=== PATIENT | female | born 1940 | race Caucasian/White ===

== ENCOUNTER 2023-04-11 14:17 | Outpatient (AMB) | payer MEDICARE, BC, SELFPAY ==
[2023-04-11 14:42] VITALS: BP 145/66; PULSE 82; RESP 18; O2SAT 96
--- NOTE | 2023-04-11 14:42 | MHC.OFFVIS ---
Intake Vital Signs 04/11/23 14:42 Weight 204 lb 6 oz BP 145/66 H Blood Pressure Location Lt brachial Position Sitting Respiration 18 Pulse 82 Pulse Source Pulse Oximeter Pulse Oximetry (%) 96 Oxygen Delivery Method Room Air Intake Visit Reasons: Chronic Lower Back Pain r/t Lumbar Spondylosis/lvm HPI HPI Comments History of Present Illness Details Basia is a very pleasant 82 year old female who presents to the office today, accompanied by her , for evaluation and management of her right lower back pain. Patient reports she has been suffering with this pain for approx 4 months. She has a history of surgery to the lower back 2 years ago to treat left sided pain, she did not have right sided pain at that time. She was cleared by neurosurgery approx 6 months ago. Patient report pain right upper buttocks that radiates into the thigh and to the right groin. Pain is worse with sitting, standing and when rising from seated position. She states laying on the right side at night is painful. Pain does not radiate past the level of the knee. She has tried gabapentin with no relief. PCP prescribed her baclofen recently but she has not tried yet as she is afraid it will make her too drowsy. Per patients she is fairly sedentary at home, getting up several times a day to go to the bathroom but otherwise she does very little physical activity. She underwent MRI appro 5 months ago, results are not available at this time. She had injections to the back years ago, initially they were beneficial but the last time she did not find any relief. Patient denies red flag symptoms including new loss of bowel, bladder or saddle anesthesia. In terms of muscle damage condition is described as aching. Pain is negatively impacting patients enjoyment of life, normal work, sleep and walking. Patient is on eliquis for DVT. 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 Essential (primary) hypertension Radiculopathy due to lumbar intervertebral disc disorder Paroxysmal atrial fibrillation Idiopathic osteoarthritis Chronic interstitial cystitis Intermittent asthma, well controlled Lumbar spondylolysis Osteoporosis Deep vein thrombosis of left lower extremity Osteoarthritis of right knee Lumbar radiculopathy Review of Systems Const All systems reviewed & are unremarkable except as noted in HPI and below Physical Exam Vital Signs: Last Vital Signs Pulse 82 04/11/23 14:42 Resp 18 04/11/23 14:42 BP 145/66 H 04/11/23 14:42 Pulse Ox 96 04/11/23 14:42 Oxygen Delivery Method Room Air 04/11/23 14:42 Lumbar exam: Able to stand on bilateral tiptoes and bilateral heels. Able to transition from sit to stand unassisted. Ambulates with antalgic gait with cane Visual inspection without gross abnormality Tender to palpation over right PSIS ROM: limited secondary to pain with extension to 10 degrees. flexion to 45degrees Strength: 5/5 BLE Sensation: intact and symmetric BLE DTR: intact and symmetric Straight leg raises with and without dorsiflexion negative bilaterally VIANCA positive on right Thigh thrust positive on right Gaenslen positive on right SI compression positive on right Assessment & Plan Assessment & Plan (1) Sacroiliac joint dysfunction of right side: Code(s): M53.3 - Sacrococcygeal disorders, not elsewhere classified (2) Facet arthritis of lumbar region: Code(s): M47.816 - Spondylosis without myelopathy or radiculopathy, lumbar region (3) Post laminectomy syndrome: Code(s): M96.1 - Postlaminectomy syndrome, not elsewhere classified Plan Basia is a very pleasant 82 year old female who presents to the office today for evaluation and management of her right lower back pain. History, physical exam and provocative testing consistent with right SIJ dysfunction. Patient was not able to tolerate PT, it was too painful. She has tried OTC medications and prescription medications without relief. Zynex TENS unit sent, patient given pamphlet and instructions for use Advised to try Baclofen as prescribed by pcp, she may take twice daily as needed. Call the office for refill as needed. Discussed options for treatment including diagnostic interventional testing, epidural steroid injections, peripheral nerve stimulation with Sprint, RFA and more permanent neuromodulation. Will schedule for Fluoroscopy guided diagnostic right SIJ injection with local anesthetic. Patient advised we will need cardiology clearance to hold Eliquis for all interventional procedures. All questions and concerns have been answered and patient agrees with the plan. Follow up after injections and sooner if needed. Coding Level of Care Code New Pt Level 4 (26538) Diagnoses Sacroiliac joint dysfunction of right side M53.3 Facet arthritis of lumbar region M47.816 Post laminectomy syndrome M96.1
== END 2023-04-11 15:21 | disposition home or self-care (01) ==
PROVIDERS: PCP Internal Medicine; Referring Provider Internal Medicine; Visit Provider Registered Nurse Emergency
DX: M53.3 Sacrococcygeal disorders, not elsewhere classified (principal); M47.816 Spondylosis without myelopathy or radiculopathy, lumbar region; M96.1 Postlaminectomy syndrome, not elsewhere classified
CPT/HCPCS: 99204

== ENCOUNTER → 2023-04-11 14:17 | Outpatient (BNVA) | payer MEDICARE, BC, SELFPAY | PROVIDERS: PCP Internal Medicine; Referring Provider Internal Medicine; Visit Provider Registered Nurse Emergency | DX: M47.816 Spondylosis without myelopathy or radiculopathy, lumbar region (principal); M53.3 Sacrococcygeal disorders, not elsewhere classified; M96.1 Postlaminectomy syndrome, not elsewhere classified | CPT/HCPCS: 99202 ==

== ENCOUNTER 2023-06-20 06:14 | Outpatient (REF) | payer MEDICARE, BC, SELFPAY ==
--- NOTE | ~2023-06-20 | FL_ITS ---
EXAMINATION: XR FLUOROSCOPY WITH IMAGES CLINICAL INFORMATION: Sacrococcygeal disorders, not otherwise classified. COMPARISON: Lumbar spine radiographs dated 03/04/2021. TECHNIQUE: Fluoroscopy Supervised By: Dr. Evelyn Mesa. Fluoroscopy Time: 0.1 minutes. Cumulative Dose: 2.04 mGy. DAP: 0.0261 mGym2. Images: 1. FINDINGS: The submitted images show an injection needle and injecting contrast distributed in the vicinity of the right sacroiliac joint. FL/FL guidance in treatment room IMPRESSION: Intraoperative fluoroscopic guidance is provided during pain management procedure. Please see the patient's Operative Report for full procedural details.
== END 2023-06-20 06:15 | disposition home or self-care (01) ==
LOC: CF 06:14
PROVIDERS: Visit Provider Anesthesiology
DX: M53.3 Sacrococcygeal disorders, not elsewhere classified (principal); M47.816 Spondylosis without myelopathy or radiculopathy, lumbar region; M96.1 Postlaminectomy syndrome, not elsewhere classified
CPT/HCPCS: 27096; J2795; Q9967

== ENCOUNTER 2023-06-20 09:59 | Outpatient (AMB) | payer MEDICARE, BC, SELFPAY ==
--- NOTE | 2023-06-20 10:09 | A.OFFVIS_ITS ---
Intake Vital Signs 06/20/23 10:10 06/20/23 10:10 Height 5 ft 3 in 5 ft 3 in Weight 204 lb 6 oz 204 lb 6 oz BMI 36.2 36.2 BP 112/66 128/60 Blood Pressure Location Lt brachial Lt brachial Position Sitting Sitting Respiration 14 14 Pulse 72 72 Pulse Source Pulse Oximeter Pulse Oximeter Pulse Oximetry (%) 94 97 Oxygen Delivery Method Room Air Room Air Comment pre-op post-op Intake Visit Reasons: RIGHT DIAGNOSTIC SIJ INJECTION Allergies No Known Allergies Allergy (Verified 06/20/23 10:09) [facility] Medical History (Updated 04/11/23 @ 15:54 by Evelyn Mesa, BREAKFAST HOSTESS, RECORD CENTER SPECIALIST) Interstitial cystitis (chronic) with hematuria Hypothyroidism Intervertebral disc disorders with radiculopathy, 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 Essential (primary) hypertension Radiculopathy due to lumbar intervertebral disc disorder Paroxysmal atrial fibrillation Idiopathic osteoarthritis Chronic interstitial cystitis Intermittent asthma, well controlled Lumbar spondylolysis Osteoporosis Deep vein thrombosis of left lower extremity Osteoarthritis of right knee Lumbar radiculopathy Physical Exam Vital Signs: Last Vital Signs Pulse 72 06/20/23 10:10 Resp 14 06/20/23 10:10 BP 128/60 06/20/23 10:10 Pulse Ox 97 06/20/23 10:10 Oxygen Delivery Method Room Air 06/20/23 10:10 BMI result Body Mass Index 36.2 Assessment & Plan Assessment & Plan (1) Sacroiliac joint dysfunction of right side: Code(s): M53.3 - Sacrococcygeal disorders, not elsewhere classified Plan: Right diagnostic sacroiliac joint injection Informed consent was explained thoroughly to the patient.? All questions about benefits and risks for the procedure were answered. Patient came to the operating room and was positioned prone on the operating table with the pillow under her abdomen. Time out was performed delineating name and of the patient, site and side of the procedure, nature of the procedure and potential patient?s risks. The lower back of the patient and upper buttocks was prepped with ChloraPrep prepped and draped with sterile utility drapes.? C-arm was brought over the operating field and square picture of patient's pelvis was demonstrated on the screen.? For the right-oint tilting C-arm contralateral to the site of the joint the posterior joint silhouette was delineated on the screen. Skin projection of the joint was chosen as a target of the injection and it was injected ?slightly medial to the location of the joint with 25 gauge needle using local lidocaine 2% without epinephrine. After that 22 gauge 3 and 1/2 inch needle was driven to the joint silhouette in tunnel vision fashion.? When needle entered the joint capsule injection of the contrast was performed demonstrating intra-articular spread of the contrast.? After that 5 cc. of ropivacaine 0.5% was injected into the joint. Upon completion of the injections the needle was removed and sterile dressing was applied.? Upon completion of the injection patient was awaken taken outside of the operating room to the recovery room where recovered uneventfully.? (2) Facet arthritis of lumbar region: Code(s): M47.816 - Spondylosis without myelopathy or radiculopathy, lumbar region (3) Post laminectomy syndrome: Code(s): M96.1 - Postlaminectomy syndrome, not elsewhere classified Plan Basia is a very pleasant 82 year old female who presents to the office today for evaluation and management of her right lower back pain. History, physical exam and provocative testing consistent with right SIJ dysfunction. Patient was not able to tolerate PT, it was too painful. She has tried OTC medications and prescription medications without relief. Zynex TENS unit sent, patient given pamphlet and instructions for use Advised to try Baclofen as prescribed by pcp, she may take twice daily as needed. Call the office for refill as needed. Discussed options for treatment including diagnostic interventional testing, epidural steroid injections, peripheral nerve stimulation with Sprint, RFA and more permanent neuromodulation. Will schedule for Fluoroscopy guided diagnostic right SIJ injection with local anesthetic. Patient advised we will need cardiology clearance to hold Eliquis for all interventional procedures. All questions and concerns have been answered and patient agrees with the plan. Follow up after injections and sooner if needed. Coding Level of Care Code Procedure Only Diagnoses Sacroiliac joint dysfunction of right side M53.3 Facet arthritis of lumbar region M47.816 Post laminectomy syndrome M96.1
[2023-06-20 10:10] VITALS: BP 112/66; BP 128/60; PULSE 72; RESP 14; O2SAT 94; O2SAT 97; BMI 36.2
== END 2023-06-20 10:35 | disposition home or self-care (01) ==
LOC: HO.PMCPRC 09:59
PROVIDERS: PCP Internal Medicine; Visit Provider Anesthesiology
DX: M53.3 Sacrococcygeal disorders, not elsewhere classified (principal)
CPT/HCPCS: 27096

== ENCOUNTER 2023-06-28 09:58 | Outpatient (AMB) | payer MEDICARE, BC, SELFPAY ==
[2023-06-28 10:06] VITALS: BP 153/67; PULSE 86; RESP 16; O2SAT 96; BMI 36.0
--- NOTE | 2023-06-28 10:06 | A.OFFVIS_ITS ---
Intake Vital Signs 06/28/23 10:06 Height 5 ft 3 in Weight 203 lb 8 oz BMI 36.0 BP 153/67 H Blood Pressure Location Lt brachial Position Sitting Respiration 16 Pulse 86 Pulse Source Pulse Oximeter Pulse Oximetry (%) 96 Oxygen Delivery Method Room Air Intake Visit Reasons: RIGHT DIAGNOSTIC SIJ INJECTION/06/20/23 Allergies No Known Allergies Allergy (Verified 06/28/23 10:06) HPI HPI Comments History of Present Illness Details Patient presents to the office today, accompanied by her , for follow-up one-week status post right diagnostic sacroiliac joint injection. She reports pain 0/10 for the 6 hours after the injection. Despite remaining pain free during that time she states after the medication wore off the pain returned and it seemed to be worse. She is unsure if she would like to proceed with therapeutic injection. Her reports that she has been more active in the day since the procedure and patient reports today her pain is improved rated as 3/10. reports the family is concerned that the patient is not as active as the would like her to be. She spends a lot of time sitting in a recliner chair and the a trying to encourage her to be more active and at least get up and walk more throughout the day. They would like a referral to physical therapy to try to increase patient's mobility and endurance. Prior: Basia is a very pleasant 82 year old female who presents to the office today, accompanied by her , for evaluation and management of her right lower back pain. Patient reports she has been suffering with this pain for approx 4 months. She has a history of surgery to the lower back 2 years ago to treat left sided pain, she did not have right sided pain at that time. She was cleared by neurosurgery approx 6 months ago. Patient report pain right upper buttocks that radiates into the thigh and to the right groin. Pain is worse with sitting, standing and when rising from seated position. She states laying on the right side at night is painful. Pain does not radiate past the level of the knee. She has tried gabapentin with no relief. PCP prescribed her baclofen recently but she has not tried yet as she is afraid it will make her too drowsy. Per patients she is fairly sedentary at home, getting up several times a day to go to the bathroom but otherwise she does very little physical activity. She underwent MRI appro 5 months ago, results are not available at this time. She had injections to the back years ago, initially they were beneficial but the last time she did not find any relief. Patient denies red flag symptoms including new loss of bowel, bladder or saddle anesthesia. In terms of muscle damage condition is described as aching. Pain is negatively impacting patients enjoyment of life, normal work, sleep and walking. Patient is on eliquis for DVT. 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 Essential (primary) hypertension Radiculopathy due to lumbar intervertebral disc disorder Paroxysmal atrial fibrillation Idiopathic osteoarthritis Chronic interstitial cystitis Intermittent asthma, well controlled Lumbar spondylolysis Osteoporosis Deep vein thrombosis of left lower extremity Osteoarthritis of right knee Lumbar radiculopathy Review of Systems Const All systems reviewed & are unremarkable except as noted in HPI and below Physical Exam Vital Signs: Last Vital Signs Pulse 86 06/28/23 10:06 Resp 16 06/28/23 10:06 BP 153/67 H 06/28/23 10:06 Pulse Ox 96 06/28/23 10:06 Oxygen Delivery Method Room Air 06/28/23 10:06 BMI result Body Mass Index 36.0 General: awake, alert, oriented. Answers questions appropriately. Fully engaged in examination. Skin: warm, dry, intact HEENT: Normocephalic. Hearing intact. Cardiac: External chest normal in appearance. Respiratory: No cough, audible wheezing or stridor. Abdomen: without gross distension. MS: No obvious swelling or deformities. Able to transition from sit to stand unassisted.Visual inspection without gross abnormality Tender to palpation over right PSIS Strength: 5/5 BLE Sensation: intact and symmetric BLE Straight leg raises with and without dorsiflexion negative bilaterally ABER positive on right Thigh thrust positive on right Gaenslen positive on right SI compression positive on right Neurological: Oriented to person, place, time and situation. Thought process intact. Ambulates with the use of a Rollator walker Psychiatric: Appropriate mood and affect. Good judgment and insight. Assessment & Plan Assessment & Plan (1) Sacroiliac joint dysfunction of right side: Code(s): M53.3 - Sacrococcygeal disorders, not elsewhere classified (2) Facet arthritis of lumbar region: Code(s): M47.816 - Spondylosis without myelopathy or radiculopathy, lumbar region (3) Post laminectomy syndrome: Code(s): M96.1 - Postlaminectomy syndrome, not elsewhere classified Plan Basia is a very pleasant 82 year old female who presents to the office today for follow-up on week status post right diagnostic sacroiliac joint injection. Patient reports pain was 0/10 in the 6 hours after the injection even with ambulation and activities that would normally exacerbate her pain. However she does not feel ready to proceed with therapeutic injection at this time. Previous attempts at physical therapy were unsuccessful due to exacerbation of her pain. Her and daughter would like her to attempt physical therapy again to help improve mobility and function, patient is agreeable to trying. Order has been placed and given to the patient. They would like physical therapy to completed by [facility] on [facility] in [place] as she has had good success with this provider in the past and the location is convenient to their home. Order placed for PT eval treat, given to patient to take to location of their choice. Continue with baclofen as needed for muscle spasms, patient advised on cautions for use Patient will follow up here after completion of physical therapy, sooner if ne eded. They were advised to call the office if she would like to proceed with therapeutic SI joint injection prior to next visit. All questions and concerns were answered, patient agrees to the plan. Orders: Orders PT Evaluation and Treatment Today M47.816 - Spondylosis without myelopathy or radiculopathy, lumbar region, M53.3 - Sacrococcygeal disorders, not elsewhere classified, M96.1 - Postlaminectomy syndrome, not elsewhere classified Medications: Changed From baclofen 10 mg PO TID To baclofen 10 mg PO BID PRN 60 tabs 0RF muscle spasm Coding Level of Care Code Est Pt Level 4 (69736) Diagnoses Sacroiliac joint dysfunction of right side M53.3 Facet arthritis of lumbar region M47.816 Post laminectomy syndrome M96.1
== END 2023-06-28 10:35 | disposition home or self-care (01) ==
PROVIDERS: PCP Internal Medicine; Visit Provider Registered Nurse Emergency
DX: M53.3 Sacrococcygeal disorders, not elsewhere classified (principal); M47.816 Spondylosis without myelopathy or radiculopathy, lumbar region; M96.1 Postlaminectomy syndrome, not elsewhere classified
CPT/HCPCS: 99214

== ENCOUNTER → 2023-06-28 09:58 | Outpatient (BNVA) | payer MEDICARE, BC, SELFPAY | PROVIDERS: PCP Internal Medicine; Visit Provider Registered Nurse Emergency | DX: M53.3 Sacrococcygeal disorders, not elsewhere classified (principal); M47.816 Spondylosis without myelopathy or radiculopathy, lumbar region; M96.1 Postlaminectomy syndrome, not elsewhere classified | CPT/HCPCS: 99212 ==